=== PATIENT | female | born 1995 | race Caucasian/White ===

== ENCOUNTER 2016-08-23 13:59 | Emergency (ER) | payer SELFPAY ==
--- NOTE | 2016-08-23 14:06 | NUR ---
CALLED PT FOR TRIAGE, NO ANSWER.
--- NOTE | 2016-08-23 14:16 | NUR ---
PATIENT LEFT WITHOUT BEING SEEN BY DR. GOLDSTEIN. NO FURTHER CARE PROVIDED FOR PATIENT.
== END 2016-08-23 14:16 | disposition left against medical advice (07) ==
LOC: MED 13:59
DX: R69 Illness, unspecified (principal); Z53.21 Procedure and treatment not carried out due to patient leaving prior to being seen by health care provider